=== PATIENT | female | born 1965 | race Caucasian/White ===

== ENCOUNTER 2018-10-02 17:28 | Emergency (ER) | payer BC ==
[2018-10-02] MEDS ORDERED: NS 0.9% 1000 ML** 1,000 ML IV ONE (18:04)
[2018-10-02 18:47] LABS: ABS Basophils 0.1 10^3/ul (0-0.2); ABS Eosinophils 0.2 10^3/ul (0-0.6); ABS Lymphocytes 2.1 10^3/ul (1.0-4.8); ABS Neutrophils 9.7 10^3/ul (1.5-7.7); ABS Nucleated RBC 0 10^3/ul; Eosinophil % 1.2 %; Hematocrit 49 % (35-47); Hemoglobin 16.7 g/dl (12.0-16.0); Lymphocyte % 15.7 %; Mean Corpuscular HGB Conc 34 g/dl (31-36); Mean Corpuscular Hemoglobin 31 pg (27-31); Mean Corpuscular Volume 91 fL (80-97); Mean Platelet Volume 6.6 fL (7.4-10.4); Nucleated Red Blood Cells % 0; Platelet Count 356 10^3/ul (150-450); Red Blood Count 5.37 10^6/ul (4.00-5.40); Red Cell Distribution Width 13 % (10.5-15)
[2018-10-02 18:51] LABS: Urine Appearance Clear; Urine Bacteria Absent (Absent); Urine Bilirubin Negative (Negative); Urine Blood 1+ (Negative); Urine Color Straw; Urine Glucose Negative (Negative); Urine Ketones Negative (Negative); Urine Nitrite Negative (Negative); Urine Protein Negative (Negative); Urine Red Blood Cell Trace(0-2/hpf) (Absent); Urine Squamous Epithelial Cell Present (Absent); Urine Urobilinogen Negative (Negative); Urine White Blood Cell Absent (Absent)
[2018-10-02 19:08] LABS: Albumin 4.7 g/dL (3.2-5.2); Albumin/Globulin Ratio 1.9 (1-3); BUN/Creatinine Ratio 18.2 (8-20); C Reactive Protein 19.16 mg/L (<8.01); Calcium 9.7 mg/dL (8.6-10.3); EGFR African American 81.6 (>60); EGFR Non-African American 67.5 (>60); Globulin 2.5 g/dL (2-4); Potassium 3.7 mmol/L (3.5-5.0); Total Bilirubin 0.5 mg/dL (0.2-1.0); Total Protein 7.2 g/dL (6.4-8.9)
[2018-10-02] MEDS ORDERED: Iohexol 300* (CONTRAST) 10 ML SDV IV ONE (19:54)
[2018-10-02] MEDS ORDERED: HYDROcodone/ACETAMIN 5-325 MG* 1 TAB PO ONE (22:05)
--- NOTE | 2018-10-02 22:09 | ED ---
Abdominal Pain/Female - HPI Summary HPI Summary: Patient complains of right lower quadrant pain radiating to right hip and right lower back starting this morning. Also complains of chills. sent by PCP D ED to rule out appendicitis. Patient denies history of kidney stones, fever, cough, sore throat, CP, SOB, N/V/D, change in urine, change in BM, vaginal symptoms. Medical history is HTN. Abdominal surgical history includes dermis cyst removal including left ovary left fallopian tube. - History of Current Complaint Chief Complaint: EDAbdPain Stated Complaint: ABD AND BACK PAIN Time Seen by Provider: 10/02/18 18:00 Hx Obtained From: Patient Onset/Duration: Sudden Onset, Lasting Hours Timing: Constant Severity Initially: Severe Severity Currently: Severe Pain Intensity: 8 Pain Scale Used: 0-10 Numeric Location: Discrete At: RLQ, Flank Radiates: Yes Radiates to: Back, Flank Character: Sharp, Cramping Aggravating Factor(s): Movement Alleviating Factor(s): Position Associated Signs and Symptoms: Positive: Negative Allergies/Adverse Reactions: Allergies Allergy/AdvReac Type Severity Reaction Status Date / Time ampicillin Allergy Hives Verified 10/02/18 17:55 erythromycin base Allergy Hives Verified 10/02/18 17:55 latex Allergy Hives Verified 10/02/18 17:55 Penicillins Allergy Hives Verified 10/02/18 17:55 tetracycline Allergy Hives Verified 10/02/18 17:55 Home Medications: Home Medications ALPRAZolam TAB* [Xanax TAB*] 0.5 mg PO TID PRN MDD 1.5 mg 10/02/18 [History Confirmed 10/02/18] Albuterol HFA INHALER* [Ventolin HFA Inhaler*] 2 puff INH Q4H PRN 10/02/18 [ History Confirmed 10/02/18] DULoxetine DR CAP* [Cymbalta CAP*] 30 mg PO BID 10/02/18 [History Confirmed 01/13] Hydrochlorothiazide TAB* [Hydrodiuril TAB*] 25 mg PO BID 10/02/18 [History Confirmed 10/02/18] Metoprolol Tartrate TAB* [Lopressor TAB*] 25 mg PO BID 10/02/18 [History Confirmed 10/02/18] Zolpidem TAB* [Ambien TAB*] 5 - 10 mg PO BEDTIME PRN 10/02/18 [History Confirmed 10/02/18] PMH/Surg Hx/FS Hx/Imm Hx Endocrine/Hematology History: Denies: Hx Diabetes Cardiovascular History: Denies: Hx Hypertension History: Denies: Hx Dialysis Sensory History: Denies: Hx Eye Prosthesis Opthamlomology History: Denies: Hx Legally Blind EENT History: Denies: Hx Deafness Neurological History: Denies: Hx Dementia Psychiatric History: Denies: Hx Autism - Surgical History Surgery Procedure, Year, and Place: LEFT OOPHERECTOMY Infectious Disease History: No Infectious Disease History: Denies: Traveled Outside the [place] in Last 30 Days - Social History Alcohol Use: Rare Substance Use Type: Reports: Marijuana Substance Use Comment - Amount & Last Used: medical card Smoking Status (MU): Former Smoker Review of Systems Constitutional: Negative Eyes: Negative ENT: Negative Cardiovascular: Negative Respiratory: Negative Positive: Abdominal Pain Genitourinary: Negative Musculoskeletal: Negative Skin: Negative Neurological: Negative Psychological: Normal All Other Systems Reviewed And Are Negative: Yes Physical Exam - Summary Physical Exam Summary: Pain with palpation of right flank. Minimal pain with palpation of right lower quadrant or right upper quadrant. Remainder of abdominal exam unremarkable. Triage Information Reviewed: Yes Vital Signs On Initial Exam: Initial Vitals Temp Pulse Resp BP Pulse Ox 98.3 F 77 20 149/98 96 10/02/18 17:49 10/02/18 17:49 10/02/18 17:49 10/02/18 17:49 10/02/18 17:49 Vital Signs Reviewed: Yes Appearance: Positive: Well-Appearing Skin: Positive: Warm Head/Face: Positive: Normal Head/Face Inspection Eyes: Positive: Normal Neck: Positive: Supple Respiratory/Lung Sounds: Positive: Clear to Auscultation Cardiovascular: Positive: Normal Abdomen Description: Positive: Other: Musculoskeletal: Positive: Normal Neurological: Positive: Normal Psychiatric: Positive: Normal AVPU Assessment: Alert - [place] Coma Scale Best Eye Response: 4 - Spontaneous Best Motor Response: 6 - Obeys Commands Best Verbal Response: 5 - Oriented Coma Scale Total: 15 Diagnostics - Vital Signs Vital Signs Temp Pulse Resp BP Pulse Ox 10/02/18 20:00 71 97 10/02/18 19:53 60 117/81 94 10/02/18 19:24 65 95 10/02/18 19:23 65 133/87 95 10/02/18 17:49 98.3 F 77 20 149/98 96 - Laboratory Lab Results: Lab Results 10/02/18 10/02/18 10/02/18 Range/Units 18:30 18:30 18:30 WBC 13.0 H (3.5-10.8) 10^3/ul RBC 5.37 (4.00-5.40) 10^6/ul Hgb 16.7 H (12.0-16.0) g/dl Hct 49 H (35-47) % MCV 91 (80-97) fL MCH 31 (27-31) pg MCHC 34 (31-36) g/dl RDW 13 (10.5-15) % Plt Count 356 (150-450) 10^3/ul MPV 6.6 L (7.4-10.4) fL Neut % (Auto) 74.7 % Lymph % (Auto) 15.7 % [place] % (Auto) 7.5 % Eos % (Auto) 1.2 % Baso % (Auto) 0.9 % Absolute Neuts (auto) 9.7 H (1.5-7.7) 10^3/ul Absolute Lymphs (auto) 2.1 (1.0-4.8) 10^3/ul Absolute Monos (auto) 1.0 H (0-0.8) 10^3/ul Absolute Eos (auto) 0.2 (0-0.6) 10^3/ul Absolute Basos (auto) 0.1 (0-0.2) 10^3/ul Absolute Nucleated RBC 0 10^3/ul Nucleated RBC % 0 Sodium 137 (135-145) mmol/L Potassium 3.7 (3.5-5.0) mmol/L Chloride 102 (101-111) mmol/L Carbon Dioxide 27 (22-32) mmol/L Anion Gap 8 (2-11) mmol/L BUN 16 (6-24) mg/dL Creatinine 0.88 (0.51-0.95) mg/dL Est GFR ( Amer) 81.6 (>60) Est GFR (Non-Af Amer) 67.5 (>60) BUN/Creatinine Ratio 18.2 (8-20) Glucose 91 (70-100) mg/dL Lactic Acid (0.5-2.0) mmol/L Calcium 9.7 (8.6-10.3) mg/dL Total Bilirubin 0.50 (0.2-1.0) mg/dL AST 16 (13-39) U/L ALT 16 (7-52) U/L Alkaline Phosphatase 64 (34-104) U/L C-Reactive Protein 19.16 H (<8.01) mg/L Total Protein 7.2 (6.4-8.9) g/dL Albumin 4.7 (3.2-5.2) g/dL Globulin 2.5 (2-4) g/dL Albumin/Globulin Ratio 1.9 (1-3) Lipase 42 (11.0-82.0) U/L Urine Color Straw Urine Appearance Clear Urine pH 5.0 (5-9) Ur Specific [place] 1.010 (1.010-1.030) Urine Protein Negative (Negative) Urine Ketones Negative (Negative) Urine Blood 1+ A (Negative) Urine Nitrate Negative (Negative) Urine Bilirubin Negative (Negative) Urine Urobilinogen Negative (Negative) Ur Leukocyte Esterase Negative (Negative) Urine WBC (Auto) Absent (Absent) Urine RBC (Auto) Trace(0-2/hpf) (Absent) Ur Squamous Epith Cells Present A (Absent) Urine Bacteria Absent (Absent) Urine Glucose Negative (Negative) 10/02/18 Range/Units 18:30 WBC (3.5-10.8) 10^3/ul RBC (4.00-5.40) 10^6/ul Hgb (12.0-16.0) g/dl Hct (35-47) % MCV (80-97) fL MCH (27-31) pg MCHC (31-36) g/dl RDW (10.5-15) % Plt Count (150-450) 10^3/ul MPV (7.4-10.4) fL Neut % (Auto) % Lymph % (Auto) % [place] % (Auto) % Eos % (Auto) % Baso % (Auto) % Absolute Neuts (auto) (1.5-7.7) 10^3/ul Absolute Lymphs (auto) (1.0-4.8) 10^3/ul Absolute Monos (auto) (0-0.8) 10^3/ul Absolute Eos (auto) (0-0.6) 10^3/ul Absolute Basos (auto) (0-0.2) 10^3/ul Absolute Nucleated RBC 10^3/ul Nucleated RBC % Sodium (135-145) mmol/L Potassium (3.5-5.0) mmol/L Chloride (101-111) mmol/L Carbon Dioxide (22-32) mmol/L Anion Gap (2-11) mmol/L BUN (6-24) mg/dL Creatinine (0.51-0.95) mg/dL Est GFR ( Amer) (>60) Est GFR (Non-Af Amer) (>60) BUN/Creatinine Ratio (8-20) Glucose (70-100) mg/dL Lactic Acid 1.0 (0.5-2.0) mmol/L Calcium (8.6-10.3) mg/dL Total Bilirubin (0.2-1.0) mg/dL AST (13-39) U/L ALT (7-52) U/L Alkaline Phosphatase (34-104) U/L C-Reactive Protein (<8.01) mg/L Total Protein (6.4-8.9) g/dL Albumin (3.2-5.2) g/dL Globulin (2-4) g/dL Albumin/Globulin Ratio (1-3) Lipase (11.0-82.0) U/L Urine Color Urine Appearance Urine pH (5-9) Ur Specific [place] (1.010-1.030) Urine Protein (Negative) Urine Ketones (Negative) Urine Blood (Negative) Urine Nitrate (Negative) Urine Bilirubin (Negative) Urine Urobilinogen (Negative) Ur Leukocyte Esterase (Negative) Urine WBC (Auto) (Absent) Urine RBC (Auto) (Absent) Ur Squamous Epith Cells (Absent) Urine Bacteria (Absent) Urine Glucose (Negative) Result Diagrams: 10/02/18 18:30 10/02/18 18:30 Lab Statement: Any lab studies that have been ordered have been reviewed, and results considered in the medical decision making process. Abdominal Pain Fem Course/Dx - Course Course Of Treatment: Patient complains of right lower quadrant pain radiating to right hip and right lower back starting this morning. Also complains of chills. sent by PCP D ED to rule out appendicitis. Patient denies history of kidney stones, fever, cough, sore throat, CP, SOB, N/V/D, change in urine, change in BM, vaginal symptoms. Medical history is HTN. Abdominal surgical history includes dermis cyst removal including left ovary left fallopian tube. Physical exam:Pain with palpation of right flank. Minimal pain with palpation of right lower quadrant or right upper quadrant. Remainder of abdominal exam unremarkable. Vital signs within normal limits. WBC 13. CRP 19. Labs otherwise unremarkable. CT abdomen and pelvis with contrast unremarkable. Transvaginal ultrasound negative for torsion, positive for potential fibroids and abnormally thickened endometrium. Patient advised to follow up with [facility]. Rx for hydrocodone. Patient understands and approves of plan. - Diagnoses Provider Diagnoses: Fibroids, Thickened endometrium Discharge - Sign-Out/Discharge Documenting (check all that apply): Patient Departure Patient Received Moderate/Deep Sedation with Procedure: No - Discharge Plan Condition: Stable Disposition: HOME Prescriptions: HYDROcodone/ACETAMIN 5-325 MG* [[place] 5-325 TAB*] 1 tab PO TID 2 Days #6 tab MDD 3 tabs HYDROcodone/ACETAMIN 5-325 MG* [[place] 5-325 TAB*] 1 tab PO TID 2 Days #6 tab MDD 3 tabs Patient Education Materials: Acute Abdominal Pain (ED), Flank Pain (ED) Referrals: Jose Harris MD [Primary Care Provider] - Brandon Galvin MD [Medical Doctor] - Additional Instructions: Follow up with [facility] for further evaluation of possible fibroids and unusual thickened endometrium. Return to the ED for any new or worsening symptoms. - Billing Disposition and Condition Condition: STABLE Disposition: Home
[2018-10-02 22:33] VITALS: BP 122/71
== END 2018-10-02 22:32 | disposition home or self-care (01) ==
LOC: ED 17:28
DX: D25.9 Leiomyoma of uterus, unspecified (principal); R93.89 Abnormal findings on diagnostic imaging of other specified body structures; M54.5 Low back pain; Z88.0 Allergy status to penicillin; Z87.891 Personal history of nicotine dependence
CPT/HCPCS: 36415; 74177; 76830; 80053; 81003; 81015; 83605; 83690; 85025; 86140; 96360; 99283; Q9967

== ENCOUNTER 2019-07-18 07:27 | Observation (INO) | payer BC ==
[~2019-07-18 07:27] MED LIST: Buffered Lidocaine 1% SYRIN* 1 ML/SYRINGE INTRADERM ONE; Dexamethasone IV* 4 MG/ML 1 ML (4 MG) IV SLOW PU ONE; Famotidine IV* 10 MG/ML 2 ML (20 mg) IV ONE; Fosaprepitant IV* 150 MG in NS 0.9% 250 ML* 145 ML IVPB ONE; Lactated Ringers 1000 ML Bag* 1,000 ML IV SCH; Scopolamine 1.5 mg* PATCH TRANSDERM SCH
[2019-07-18] MEDS ORDERED: Dexamethasone IV* 4 MG/ML 1 ML (4 MG) ONE (08:20)
[2019-07-18] MEDS ORDERED: Scopolamine 1.5 mg* PATCH ONE (08:20)
[2019-07-18] MEDS ORDERED: Famotidine IV* 10 MG/ML 2 ML (20 mg) ONE (08:21)
[2019-07-18] MEDS ORDERED: ceFAZolin 2 GM in NS PREMIX(*) 2 GM/100 ML BAG IVPB ONE (08:21)
[2019-07-18 08:30] LABS: ABS Basophils 0.1 10^3/ul (0-0.2); ABS Eosinophils 0.2 10^3/ul (0-0.6); ABS Lymphocytes 1.6 10^3/ul (1.0-4.8); ABS Monocytes 0.6 10^3/ul (0-0.8); ABS Neutrophils 4.4 10^3/ul (1.5-7.7); Eosinophil % 2.5 %; Hematocrit 44 % (35-47); Hemoglobin 15.6 g/dL (12.0-16.0); Lymphocyte % 23.7 %; Mean Corpuscular HGB Conc 35 g/dL (31-36); Mean Corpuscular Hemoglobin 32 pg (27-31); Mean Corpuscular Volume 91 fL (80-97); Mean Platelet Volume 6.8 fL (7.4-10.4); Platelet Count 296 10^3/uL (150-450); Red Blood Count 4.89 10^6 /uL (3.70-4.87); Red Cell Distribution Width 13 % (10-15); White Blood Count 6.8 10^3/uL (3.5-10.8)
[2019-07-18] MEDS ORDERED: Bupivacaine 0.5% W/EPI SDV* 10 ML VIAL INJ ONE (08:51)
[2019-07-18] MEDS ORDERED: KETAMINE HCL* 50 MG/ML 10 ML VIAL ONE (08:53)
[2019-07-18] MEDS ORDERED: Midazolam* 1 MG/ML 2 ML VIAL (2 MG) ONE ×2 (08:53→09:28)
[2019-07-18] MEDS ORDERED: Rocuronium* 10 MG/ML VIAL ONE (08:53)
[2019-07-18] MEDS ORDERED: fentaNYL* 50 MCG/ML 2 ML VIAL (100 MCG VIAL) ONE ×2 (08:53→11:39)
[2019-07-18] MEDS ORDERED: Ondansetron INJ* 2 MG/ML VIAL ONE (08:54)
[2019-07-18] MEDS ORDERED: Ketorolac INJ* 30 MG/ML 1 ML VIAL ONE (08:54)
[2019-07-18] MEDS ORDERED: Propofol* 10 MG/ML 20 ML BTL ONE (08:54)
[2019-07-18] MEDS ORDERED: APREPITANT IV* 130 MG in PREMIX* 0 ML IV ONE (09:00)
[2019-07-18] MEDS ORDERED: Dextrose 50% VIAL 50 ml ONE (09:28)
[2019-07-18] MEDS ORDERED: EPHEDrine (Pressors)* 50 MG/ML VIAL ONE (10:18)
[2019-07-18] MEDS ORDERED: Naloxone* 0.4 MG/ML 1 ML VIAL IV PRN (10:25)
[2019-07-18] MEDS ORDERED: HYDROmorphone INJ1* 1 MG/ML SYRINGE IV PRN (10:25)
[2019-07-18] MEDS ORDERED: fentaNYL* 50 MCG/ML 2 ML VIAL (100 MCG VIAL) IV PRN (10:25)
[2019-07-18] MEDS ORDERED: DiMENhydriNATE IV* 50 MG/ML VIAL IV PUSH PRN (10:25)
[2019-07-18] MEDS ORDERED: Neostigmine Methylsulfate* 3 MG/3 ML SYRINGE ONE (10:29)
[2019-07-18] MEDS ORDERED: Lidocaine 2% PF * 5 ML VIAL ONE (10:29)
[2019-07-18] MEDS ORDERED: Glycopyrrolate IV* 0.2 MG/ML 1 ML VIAL ONE (10:29)
[2019-07-18] MEDS ORDERED: Hydrochlorothiazide TAB* 25 MG PO SCH ×2 (12:00→21:00)
[2019-07-18] MEDS ORDERED: ALPRAZolam TAB* 0.5 MG PO PRN (13:01)
[2019-07-18] MEDS ORDERED: Albuterol HFA INHALER* 8 gm MDI INH PRN (13:02)
[2019-07-18] MEDS: HYDROmorphone TAB* 2 MG PO PRN ×2 (13:05→21:23)
[2019-07-18] MEDS: Lactated Ringers 1000 ML Bag* 1,000 ML IV SCH ×2 (13:07→22:24)
[2019-07-18] MEDS: celeCOXIB CAP* 200 MG PO SCH ×2 (13:12→21:23)
[2019-07-18] MEDS: Metoprolol Tartrate TAB* 25 MG PO SCH ×2 (13:17→21:22)
[2019-07-18] MEDS: Docusate CAP* 100 MG PO PRN ×2 (14:10→21:22)
--- NOTE | 2019-07-18 16:28 | OP ---
DATE OF OPERATION: 07/18/19 - ROOM #334 DATE OF : 67 SURGEON: Charles Lewis MD. MERCHANDISE ADJUSTMENT CLERK: Dr. Aiken. ANESTHESIA: General endotracheal tube. 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 POST-OP DIAGNOSES: Pelvic pain and tubal ablation syndrome. OPERATIVE PROCEDURE: 1. Laparoscopic supracervical hysterectomy. 2. Removal of right fallopian tube. ESTIMATED BLOOD LOSS: Minimal. SPECIMENS: Include uterus and right fallopian tube. FINDINGS: On laparoscopy, anterior bladder flap appeared normal. The cul-de- sac appeared normal. Left tube and ovary were absent. The uterus appeared relatively normal, but there was a right dilation of the cornual region feeding into the stump of the right tube. The right ovary appeared normal. The right fallopian tube fimbria appeared normal. DESCRIPTION OF PROCEDURE: The patient identified and procedure identified as a laparoscopic supracervical hysterectomy and right salpingectomy. The patient was taken to the operating room, prepped and draped in the usual fashion in the dorsal lithotomy position under general anesthesia. A ClearView was placed in the cervical os and [place] was placed. A small infraumbilical incision was made and carried down to fat, fascia, and peritoneum. The GelPOINT [place] initially was placed and the GelPOINT platform was placed on this and visualization of the uterus showed the above findings. The LigaSure was placed through the port and under direct visualization, the left ovarian ligament and round ligament were cauterized and then incised. A bladder flap was created via sharp dissection and the bladder was dissected caudally. The uterine vessels on the left side were cauterized multiple times using a LigaSure and a good blanching was noted at the uterus. On the right side starting with the fimbriated ends, the mesosalpinx was cauterized and then incised and leaving the ovary behind the ovarian ligament and the round ligament were cauterized and incised. A bladder flap again was created via sharp dissection using the LigaSure. The bladder was dissected caudally and the uterine vessels on the right side were then cauterized multiple times and then incised. Good blanching was noted at the uterus at this point. The SupraLoop was placed through the incision and the loop was placed over the cervicouterine junction and tied down. The SupraLoop was inspected carefully and found to be free of bowel and using 110 of pure cut, the uterus was excised from the cervix. Cervix was then cauterized using the LigaSure and unipolar cautery. The Endo cervix was also cauterized as well as the vessels. Good hemostasis was verified. The uterus was brought out through the umbilical incision without morcellation as it was a smaller uterus as well as the fallopian tube. Good hemostasis was verified. Unipolar cautery was used on the cervical stump to make sure good hemostasis was there. All instruments were removed from the abdomen. The abdomen was deflated of CO2. The fascia was then closed using 0 Polysorb in a running fashion. Good hemostasis in subcu tissues. The space was closed using 3-0 Vicryl in a simple fashion and the skin was closed with 3-0 Vicryl in a subcuticular fashion and glue was applied. All sponge and instrument counts were correct. Sponge and sponge stick removed from the vagina and the patient returned to recovery room in stable condition. [id number]/CPS #: [id number] [email or web address]
[2019-07-18 16:37] LABS: ABS Lymphocytes 0.7 10^3/ul (1.0-4.8); ABS Monocytes 0.1 10^3/ul (0-0.8); ABS Neutrophils 8.9 10^3/ul (1.5-7.7); Hematocrit 44 % (35-47); Hemoglobin 15.1 g/dL (12.0-16.0); Lymphocyte % 7.3 %; Mean Corpuscular HGB Conc 34 g/dL (31-36); Mean Corpuscular Hemoglobin 31 pg (27-31); Mean Corpuscular Volume 92 fL (80-97); Mean Platelet Volume 6.6 fL (7.4-10.4); Platelet Count 312 10^3/uL (150-450); Red Blood Count 4.79 10^6 /uL (3.70-4.87); Red Cell Distribution Width 13 % (10-15); White Blood Count 9.7 10^3/uL (3.5-10.8)
[2019-07-18] MEDS ORDERED: Zolpidem TAB* 10 MG PO SCH (21:00)
[2019-07-18] MEDS ORDERED: Pregabalin CAP(*) 100 MG PO SCH (21:00)
[2019-07-19] MEDS: Lactated Ringers 1000 ML Bag* 1,000 ML IV SCH (06:38)
[2019-07-19 07:17] VITALS: BP 103/52
== END 2019-07-19 09:07 | disposition home or self-care (01) ==
LOC: OR 07:27 → SSU 11:08
PROVIDERS: ADMIT Obstetrics & Gynecology; ATTEND Obstetrics & Gynecology
DX: D25.0 Submucous leiomyoma of uterus (principal); R10.2 Pelvic and perineal pain; N99.85 Post endometrial ablation syndrome; Z79.899 Other long term (current) drug therapy; Z79.3 Long term (current) use of hormonal contraceptives; I10 Essential (primary) hypertension; F32.9 Major depressive disorder, single episode, unspecified; F41.9 Anxiety disorder, unspecified; M19.90 Unspecified osteoarthritis, unspecified site
CPT/HCPCS: 36415; 85025; 86850; 86900; 86901; 88307; 96361; 96374; A9270-GY; G0378; J0185; J0690; J1100; J1885; J2250; J2405; J2704; J2710; J3010